=== PATIENT | male | born 1945 | race Caucasian/White ===

== ENCOUNTER 2018-12-19 08:08 | Outpatient (CLI) | payer MEDICARE, BC ==
--- NOTE | 2018-12-19 09:49 | RAD ---
CERVICAL SPINE EIGHT VIEWS: 12/19/2018 HISTORY: Cervical disk herniation. COMPARISON: None available. FINDINGS: The C1 to the cervicothoracic junction is seen on the lateral and Swimmer's views of the cervical spi ne. Vertebral body heights are within normal limits. No obvious fractures. However, portions of th e C7 vertebral body are partially obscured due to overlying structures. There are mild degenerative changes in the cervical spine, with narrowing of the intervertebral disk spaces involving the mid and lower cervical spine. Facet degenerative changes are noted in the cervical spine. No abnormal dudley slational motion is identified on the flexion and extension views. There is mild bony encroachment, related to uncinate process hypertrophy on the right at the C6-C7 level, and on the left at the C5-C6 and C6-C7 levels. IMPRESSION: Degenerative changes in the cervical spine, but no fracture or subluxation is appreciated. POS: VILMA
--- NOTE | 2018-12-19 10:38 | MRI ---
MRI CERVICAL SPINE WITHOUT CONTRAST: 12/19/2018 HISTORY: Cervical disk herniation. Cervical neck pain. COMPARISON: None available. FINDINGS: There is significant motion artifact on the axial images, which does degrade image quality and limits evaluation, especially for the degree of neural foraminal and central canal narrowing. The visualized base of the brain, as well as the cervicomedullary junction, demonstrate a normal appe arance, with suggestion of mild cerebellar volume loss. A mucus retention cyst is seen in the right maxillary antrum. There is heterogeneity of the bone marrow, which is an overall nonspecific finding. C2-C3: There is minimal disk osteophyte complex. The central spinal canal and neural foramina do ap pear patent. C3-C4: There is a broad-based disk osteophyte complex, which results in slight mass effect on the ve ntral subarachnoid space. There is limited evaluation of the neural foramina due to significant olga ent motion. The right neural foramen is patent, but there may be mild left-sided neural foraminal na rrowing. C4-C5: There is loss of intervertebral disk height. There are endplate degenerative changes seen. There is a disk osteophyte complex identified. There is mild effacement of the ventral subarachnoid space without significant narrowing of the central spinal canal. There is significant motion, limiti ng evaluation of the neural foramina, but there is probably moderate right and severe left-sided neur al foraminal narrowing, with suggestion of facet degenerative changes on the left at this level. C5-C6: There is loss of intervertebral disk height. There is a broad-based disk osteophyte complex, which narrows the ventral subarachnoid space. The neural foramina are not well evaluated due to sig nificant motion, but question severe bilateral neural foraminal narrowing. C6-C7: There is loss of intervertebral disk height. There is a broad-based disk osteophyte complex. There is mild effacement of the ventral subarachnoid space and mild narrowing of the central spinal canal. The neural foramina at this level are not well evaluated due to significant motion, but ther e is probably mild to moderate bilateral neural foraminal narrowing, greater on the left. C7-T1: There is a mild disk osteophyte complex. This narrows the ventral subarachnoid space. There is slight anterolisthesis of C7 on T1. Facet degenerative changes are present at this level. Howev er, the neural foramina do appear patent, and there is only slight mass effect on the ventral subarac hnoid space. T1-T2: There is slight anterolisthesis of T1 on T2. There is mild disk osteophyte complex present a t the T1-T2, as well as the T2-T3 and T3-T4, levels, resulting in mild narrowing of the ventral subar achnoid spaces at these levels. Based on sagittal imaging, no significant neural foraminal narrowing can be appreciated. IMPRESSION: 1. Multilevel degenerative changes, greatest in the lower cervical spine. However, the degree of ne ural foraminal narrowing is not well assessed due to significant patient motion on axial imaging. Ho wever, there are mild and mild to moderate degrees of neural foraminal narrowing suggested, with grea ter degrees of neural foraminal narrowing suggested at the C5-C6 and C6-C7 levels, but this is also a t levels of greatest motion artifact. 2. Slight anterolisthesis of C7 on T1 and T1 on T2. POS: VILMA
== END 2018-12-19 08:09 | disposition home or self-care (01) ==
LOC: TBSIIMAG 08:08
PROVIDERS: ATTEND Anesthesiology Pain Medicine
DX: M50.20 Other cervical disc displacement, unspecified cervical region (principal); M47.812 Spondylosis without myelopathy or radiculopathy, cervical region; M43.13 Spondylolisthesis, cervicothoracic region; M43.14 Spondylolisthesis, thoracic region
CPT/HCPCS: 72052; 72141